=== PATIENT | male | born 1960 | race Caucasian/White ===

== ENCOUNTER → 2019-10-19 08:47 | Outpatient (CLI) | payer OTHER, SELFPAY ==
[2019-10-19 09:15] LABS: Basophils # 0.1 K/mm3 (0-0.2); Basophils % 0.5 % (0.1-2.0); Eosinophils # 0.2 K/mm3 (0.0-0.4); Eosinophils % 1.4 % (0.1-12.0); Hematocrit 42.8 % (42.0-52.0); Hemoglobin 14.6 g/dL (14.1-18.0); Lymphocytes # 2.1 K/mm3 (0.7-4.5); Lymphocytes % 18.5 % (10-50); Mean Corpuscular HGB Conc 34.2 g/dL (31.8-35.4); Mean Corpuscular Hemoglobin 31.8 pg (27.0-31.2); Mean Corpuscular Volume 92.9 fl (80-94); Mean Platelet Volume 8.8 fl (7.4-10.4); Monocytes # 0.6 K/mm3 (0.1-1.0); Monocytes % 5.4 % (1.7-9.3); Neutrophils # 8.5 K/mm3 (1.8-7.8); Neutrophils % 74.2 % (37.0-80.0); Platelet Count 232 K/mm3 (142-424); Red Blood Count 4.61 M/mm3 (4.60-6.20); Red Cell Distribution Width 13.3 % (11.5-17.5); White Blood Count 11.5 K/mm3 (4.8-10.8)
[2019-10-19 10:12] LABS: Chloride 103 mmol/L (98-107)
[2019-10-19 10:13] LABS: Potassium 4.1 mmoL/L (3.5-5.1); Sodium 137 mmol/L (136-145)
[2019-10-19 10:15] LABS: Alanine Aminotransferase 84 U/L (12-78); Anion Gap 13.1 mEq/L (5-15); Aspartate Amino Transferase 52 U/L (17-59); Blood Urea Nitrogen 13 mg/dl (9-20); Carbon Dioxide 25 mmol/L (22.0-30.0); Estimated Glomerular Filt Rate 87 ml/min (>60); GFR (African American) 105 ML/MIN (>60)
[2019-10-19 10:16] LABS: Albumin Level 4.2 g/dl (3.5-5.0); Albumin/Globulin Ratio 1.6 (1.1-1.8); Alkaline Phosphatase 68 U/L (38-126); Bilirubin,Total 0.6 mg/dl (0.2-1.3); Calcium 9.6 mg/dl (8.4-10.2); Chol/HDL Ratio 3.8 (1-3.5); Cholesterol 201 mg/dl (140-200); Globulin 2.7 g/dL (1.3-3.2); Glucose 121 mg/dl (74-100); HDL Cholesterol 53 mg/dl (40-60); Total Protein,Serum 6.9 g/dl (6.3-8.2); Triglycerides 117 mg/dl (30-150); VLDL Cholesterol 23 mg/dL (0-40)
[2019-10-19 10:27] LABS: Direct LDL Cholesterol 128.16 mg/dL (100-129)
[2019-10-19 12:09] LABS: Prostate Specific Ag Screen 0.5 ng/ml (0.0-4.0)
== END ==
PROVIDERS: PCP Family Medicine; Visit Provider Family Medicine
DX: K21.9 Gastro-esophageal reflux disease without esophagitis (principal); K52.1 Toxic gastroenteritis and colitis; N52.9 Male erectile dysfunction, unspecified; Z12.5 Encounter for screening for malignant neoplasm of prostate
CPT/HCPCS: 36415; 80053; 80061; 84443; 85025; G0103